=== PATIENT | male | born 1995 | race Caucasian/White ===

== ENCOUNTER 2019-12-21 09:02 | Emergency (ER) | payer SELFPAY ==
[2019-12-21 09:20] VITALS: BP 140/81; PULSE 20; RESP 18; TEMP 36.6; O2SAT 98
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
[2019-12-21 09:28] VITALS: BP 130/85; PULSE 78; RESP 20; O2SAT 98
== END 2019-12-21 09:31 | disposition home or self-care (01) ==
PROVIDERS: Emergency Provider Family Medicine
DX: R21 Rash and other nonspecific skin eruption (principal); T50.995A Adverse effect of other drugs, medicaments and biological substances, initial encounter
CPT/HCPCS: 99281; 99282

== ENCOUNTER 2023-01-13 08:20 | Emergency (ER) | payer OTHER, SELFPAY ==
--- NOTE | ~2023-01-13 | XR_ITS ---
Left Hand Technique: PA, oblique, and lateral views were obtained. Clinical History: Third DIP flexion Findings: No acute fracture or dislocation is seen. There is fixed flexion at the third DIP joint. Ying int spaces are preserved. Soft tissues are unremarkable. Impression: Fixed flexion at the third DIP joint. This could reflect underlying extensor tendon rupture. Follow-u p MR could be considered to better evaluate the underlying tendons. Reviewed, dictated and finalized at location . Impression: Fixed flexion at the third DIP joint. This could reflect underlying extensor te ndon rupture. Follow-up MR could be considered to better evaluate the underlyin g tendons.
[2023-01-13 08:20] VITALS: BP 123/93; PULSE 96; RESP 16; TEMP 36.8; O2SAT 100
--- NOTE | 2023-01-13 08:46 | ED.UPPEXIN ---
HPI - Extremity Injury (Upper) General Chief Complaint: Extremity Injury, Upper Stated Complaint: finger deformity Time Seen by Provider: 01/13/23 08:46 Source: patient Mode of arrival: ambulatory History of Present Illness HPI narrative: 27-year-old male was trying to pull down his boxers this morning when he accidentally forcibly flexed his distal phalanx of the middle finger of the left hand. He developed pain in the distal interphalangeal joint and subsequently he was not able to extend it. The finger has fixed flexion deformity of the distal phalanx. complaint: injury to: left Onset (ago): hour(s) ( 3 hours ago) Other Extremity Injury: Left: hand Handedness: right Place: home Severity: mild Relieving factors: none Exacerbating factors: none Context: direct blow Associated symptoms: denies other symptoms Related Data Home Medications Medication Instructions Recorded Confirmed No Home Medications 12/21/19 01/13/23 Allergies Allergy/AdvReac Type Severity Reaction Status Date / Time amoxicillin [From Augmentin] Allergy Rash Verified 01/13/23 08:33 clavulanic acid Allergy Rash Verified 01/13/23 08:33 [From Augmentin] Review of Systems Review of Systems: All systems reviewed & are unremarkable except as noted in HPI and below Exam Const: General: healthy appearing and no acute distress Orientation/consciousness: patient oriented x3 Limitations: no limitations HENMT: Head: normal to inspection Ears: external ears normal Face/Nose/Sinus: Normal external nose present Face and sinus: normal facial exam Mouth: Yes Normal oral and palatal mucosa present Throat: posterior oropharynx normal Eyes: Conjunctivae: conjunctivae normal Pupils: Equal, round and reactive pupils present EOM: EOMs intact bilaterally Direct Ophthalmoscopy: no photophobia Neck: Neck: normal visual inspection, no lymphadenopathy and no meningeal signs Chest: Chest palpation & inspection: normal inspection of the chest Resp: Effort & Inspection: normal respiratory effort Auscultation: clear to auscultation bilaterally Cardio: Rate: regular rate Rhythm: regular rhythm GI: GI Palp: Yes Soft to palpation Auscultation: normal bowel sounds Other: no tenderness/ rigidity / rebound. : General: Yes no CVA tenderness Skin: General skin exam: normal color Rashes: no rashes Wounds: no wounds Neuro: General: patient oriented x3 Cranial nerves: Yes Nystagmus not present Speech: normal speech Extrem: General: normal to inspection Other: Left hand middle finger has forced flexion deformity of the distal phalanx. Unable to extend his distal phalanx. Distal neurovascular bundle is intact. Psych: Mental Status: mental status grossly normal Affect: normal affect Attitude: cooperative Course Course Emergency Course: Mallet finger- will get an x-ray of the hand to rule out fracture around the distal interphalangeal joint. No fracture noted around the D IP. This appears to be a rupture of the extensor tendon. Vital Signs Vital signs: Vital Signs Temperature 36.8 C 01/13/23 08:20 Pulse Rate 96 01/13/23 08:20 Respiratory Rate 16 01/13/23 08:20 Blood Pressure 123/93 H 01/13/23 08:20 Pulse Oximetry 100 01/13/23 08:20 Oxygen Delivery Room Air 01/13/23 08:20 Temperature 36.8 C 01/13/23 08:20 Pulse Rate 96 01/13/23 08:20 Respiratory Rate 16 01/13/23 08:20 Blood Pressure 123/93 H 01/13/23 08:20 Pulse Oximetry 100 01/13/23 08:20 Oxygen Delivery Room Air 01/13/23 08:20 Discharge Plan Discharge Clinical Impression: Mallet deformity of left middle finger Patient Disposition: Home, Self-Care Condition: Stable Instructions: Antibiotic Form, Jammed Finger (ED), Tendon Repair (DC) Patient Language: Lithuanian Prescriptions: No Action No Home Medications Follow-up/Referrals: UNKNOWN,DOCTOR [Primary Care Provider] - Time of Disposition: 09:
== END 2023-01-13 09:40 | disposition home or self-care (01) ==
PROVIDERS: Emergency Provider Internal Medicine Critical Care Medicine
DX: M20.012 Mallet finger of left finger(s) (principal)
CPT/HCPCS: 29130; 73130; 99283

== ENCOUNTER 2023-02-06 09:16 | Outpatient (CLI) | payer OTHER, SELFPAY ==
--- NOTE | ~2023-02-06 | XR_ITS ---
XR hand LT min 3V DATE: 02/06/2023 09:31 INDICATION: Third finger jammed, tendon ruptured TECHNIQUE: 3 views COMPARISON: 01/05/2023 left hand FINDINGS: There is reduction of the previous flexion deformity at the distal interphalangeal joint of the third digit. No fracture, dislocation, periosteal reaction or bone destruction. IMPRESSION: No significant abnormality Reviewed, dictated and finalized at location B. IMPRESSION: No significant abnormality
== END 2023-02-06 09:17 | disposition home or self-care (01) ==
LOC: CHSIMG 09:18
PROVIDERS: PCP Registered Nurse; Visit Provider Family Medicine
DX: S69.92XD Unspecified injury of left wrist, hand and finger(s), subsequent encounter (principal)
CPT/HCPCS: 73130

== ENCOUNTER 2023-04-26 13:37 | Emergency (ER) | payer SELFPAY ==
[2023-04-26 13:41] VITALS: BP 135/73; PULSE 97; RESP 18; TEMP 37.4; O2SAT 99
[2023-04-26] MEDS: FLUORESCEIN SOD 1 MG/STRIP EACH EYE (15:17)
[2023-04-26] MEDS: TETRACAINE HCL 0.5% OPHTH SOLN 4 ML BTL 1 DROP EACH EYE (15:17)
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
[2023-04-26] MEDS: DACRIOSE EYE IRRIGATION 118 ML BOTTLE 60 ML LEFT EYE (15:57)
[2023-04-26 16:01] VITALS: BP 138/74; PULSE 84; RESP 20; TEMP 36.8; O2SAT 99
[2023-04-26 16:15] VITALS: BP 125/82; PULSE 85; RESP 17; TEMP 36.9; O2SAT 99
== END 2023-04-26 16:22 | disposition home or self-care (01) ==
PROVIDERS: Emergency Provider Emergency Medicine; PCP Registered Nurse
DX: L03.213 Periorbital cellulitis (principal)
CPT/HCPCS: 99283; A9270

== ENCOUNTER 2023-06-05 15:51 | Emergency (ER) | payer SELFPAY ==
[2023-06-05 15:52] VITALS: BP 117/83; PULSE 87; RESP 20; TEMP 37.7; O2SAT 100
--- NOTE | 2023-06-05 15:57 | ED.URI ---
HPI - URI/Sore Throat General Chief Complaint: Upper Respiratory Infection Stated Complaint: sore throat Time Seen by Provider: 06/05/23 15:52 Source: patient and RN notes reviewed Mode of arrival: ambulatory Limitations: no limitations History of Present Illness MD elicited complaint: sore throat Onset (ago): day(s) (2) Consistency: progressively worsening Severity: moderate Able to tolerate fluids by mouth: Yes Exacerbating factors: swallowing Relieving factors: nothing Context: sick contacts Associated symptoms: denies other symptoms Treatments prior to arrival: none Related Data Allergies Allergy/AdvReac Type Severity Reaction Status Date / Time amoxicillin [From Augmentin] Allergy Rash Verified 04/26/23 13:40 clavulanic acid Allergy Rash Verified 04/26/23 13:40 [From Augmentin] Review of Systems Review of Systems: All systems reviewed & are unremarkable except as noted in HPI and below PMFSH Past Medical History Medical History (Updated 06/05/23 @ 17:06 by Pedro Mabry MD) No active medical problems Surgical History Surgical History (Updated 06/05/23 @ 17:06 by Pedro Mabry MD) No pertinent past surgical history Social History Social History (Updated 06/05/23 @ 17:06 by Pedro Mabry MD) Smoking status: Current some day smoker Tobacco type: e-cigarettes/vaping Exam Const: General: healthy appearing, no acute distress and alert Nutritional Appearance: well nourished Orientation/consciousness: patient oriented x3 Limitations: no limitations HENMT: Head: normal to inspection Ears: external ears normal Face/Nose/Sinus: Normal external nose present Face and sinus: normal facial exam Mouth: Yes moist mucous membranes Throat: uvula midline and abnormal tonsil bilateral erythema, exudates and hypertrophy Eyes: Conjunctivae: conjunctivae normal Pupils: Equal, round and reactive pupils present EOM: EOMs intact bilaterally Neck: Neck: normal visual inspection and lymphadenopathy bilateral anterior cervical soft and tender Resp: Effort & Inspection: normal respiratory effort Auscultation: clear to auscultation bilaterally Cardio: Rate: regular rate Rhythm: regular rhythm GI: GI Palp: Yes Soft to palpation and No Tenderness to palpation present (GI) Auscultation: normal bowel sounds Back/Spine/Pelvis: Cervical Spine: cervical ROM normal Thoracic/Lumbar Spine: thoraco-lumbar ROM normal Skin: General skin exam: normal color Rashes: no rashes Neuro: General: patient oriented x3, moves all extremities, no focal motor deficits and CN's II-XI intact bilaterally Speech: normal speech Gait exam (Neuro): Normal gait present Extrem: General: normal to inspection and no clubbing, cyanosis or edema Psych: Mental Status: mental status grossly normal Affect: normal affect Attitude: cooperative Course Vital Signs Vital signs: Vital Signs Temperature 37.7 C H 06/05/23 15:52 Pulse Rate 87 06/05/23 15:52 Respiratory Rate 20 06/05/23 15:52 Blood Pressure 117/83 06/05/23 15:52 Pulse Oximetry 100 06/05/23 15:52 Oxygen Delivery Room Air 06/05/23 15:52 Temperature 37.7 C H 06/05/23 15:52 Pulse Rate 87 06/05/23 15:52 Respiratory Rate 20 06/05/23 15:52 Blood Pressure 117/83 06/05/23 15:52 Pulse Oximetry 100 06/05/23 15:52 Oxygen Delivery Room Air 06/05/23 15:52 MDM - URI/Sore Throat Differential Diagnosis Differential diagnosis: Likely upper respiratory infection, viral infection and pharyngitis Lab Data Attestation: I reviewed the patient's lab results. Labs: Lab Results 06/05/23 Range/Units 15:52 Group A Strep (PCR) Not detected (Negative) Discharge Plan Discharge Clinical Impression: Pharyngitis Qualifiers: Pharyngitis/tonsillitis etiology: unspecified etiology Qualified Code(s): J02.9 - Acute pharyngitis, unspecified Patient Disposition: Home, Self-Care Condition: Stable Instructions: Pharyngi
[2023-06-05 16:45] LABS: Strep Group A RT-PCR NOT DETECTED (Negative)
[2023-06-05 16:52] VITALS: BP 110/75; PULSE 78; RESP 20; TEMP 36.8; O2SAT 98
== END 2023-06-05 16:50 | disposition home or self-care (01) ==
PROVIDERS: Emergency Provider Emergency Medicine; PCP Registered Nurse
DX: J02.9 Acute pharyngitis, unspecified (principal)
CPT/HCPCS: 87651; 99283

== ENCOUNTER 2024-03-18 06:49 | Emergency (ER) | payer SELFPAY ==
--- NOTE | ~2024-03-18 | XR_ITS ---
Clinical Indication: Cough PA and lateral views of the chest: Comparison: 01/26/2019 Findings: The lungs are clear, without evidence of focal consolidation or pleural effusion. Cardiome diastinal silhouette is within normal limits. Bones and soft tissues are unremarkable. Impression: Normal chest. Reviewed, dictated and finalized at [facility]. Impression: Normal chest.
[2024-03-18 06:50] VITALS: O2SAT 98
[2024-03-18 06:52] VITALS: BP 115/75; PULSE 94; RESP 18; TEMP 36.8; O2SAT 100
[2024-03-18 06:53] VITALS: BP 115/75; PULSE 94; RESP 18; TEMP 36.8; O2SAT 100
--- NOTE | 2024-03-18 07:13 | ED.URI ---
HPI - URI/Sore Throat General Chief Complaint: Upper Respiratory Infection Stated Complaint: back pain Time Seen by Provider: 03/18/24 07:03 Source: patient Mode of arrival: ambulatory Limitations: no limitations History of Present Illness HPI Narrative: Patient is a 28-year-old male with right middle to lower back pain from either coughing and/or work related lifting. He has been not feeling well for about 1 week. He has had cough and congestion. No chest pain or shortness of breath. MD elicited complaint: cough Onset (ago): week(s) (1) Consistency: intermittent Severity: moderate Pain scale (0-10): 5 Description of mucous: clear Able to tolerate fluids by mouth: Yes Exacerbating factors: deep breaths Relieving factors: rest Context: other ( Patient lifts concrete for work) Associated symptoms: cough Treatments prior to arrival: none Related Data Allergies Allergy/AdvReac Type Severity Reaction Status Date / Time amoxicillin [From Augmentin] Allergy Rash Verified 03/18/24 06:52 clavulanic acid Allergy Rash Verified 03/18/24 06:52 [From Augmentin] Review of Systems Review of Systems: All systems reviewed & are unremarkable except as noted in HPI and below Constitutional: Constitutional: Reports no additional constitutional complaints Eyes: Eyes: Reports no additional eye complaints ENT: Reports system reviewed and no additional complaints, except as documented Cardiovascular: Cardiovascular: Reports no additional cardiovascular complaints Respiratory: Respiratory: Reports no additional respiratory complaints Gastrointestinal: Gastrointestinal: Reports no additional gastrointestinal complaints Genitourinary: Genitourinary: Reports no additional male genitourinary complaints Musculoskeletal: Musculoskeletal: Reports no additional musculoskeletal complaints Integumentary/Breasts: Skin/Breast: Reports system reviewed and no additional complaints, except as docu Neurologic: Reports system reviewed and no additional complaints, except as documented Psychiatric: Psychiatric: Reports no additional psychiatric complaints Endocrine: Endocrine: Reports no additional endocrine complaints Hematologic/Lymphatic: Hematologic/Lymphatic: Reports no additional hematologic/lymphatic complaints Allergic/Immunologic: Allergic/Immunologic: Reports no additional allergic/immunologic complaints PMFSH Past Medical History Medical History No active medical problems Surgical History Surgical History No pertinent past surgical history Social History Social History Smoking status: Current some day smoker Tobacco type: e-cigarettes/vaping Exam Const: General: healthy appearing Nutritional Appearance: well nourished Orientation/consciousness: patient oriented x3 HENMT: Head: normal to inspection Ears: external ears normal Face/Nose/Sinus: Normal external nose present Eyes: Conjunctivae: conjunctivae normal Pupils: Equal, round and reactive pupils present EOM: EOMs intact bilaterally Neck: Neck: normal visual inspection Chest: Chest palpation & inspection: normal inspection of the chest Resp: Effort & Inspection: normal respiratory effort and not labored Auscultation: not clear to auscultation bilaterally, crackles on the right in the lower lung garner, no rales, no rhonchi, no wheezes, breath sounds present and diminished lung sounds Cardio: Rate: regular rate and not bradycardic Rhythm: regular rhythm Heart sounds: no murmurs GI: Inspection: non-distended GI Palp: Yes Soft to palpation, No Tenderness to palpation present (GI) and No Guarding due to palpation present (GI) Auscultation: normal bowel sounds : General: Yes bladder normal to palpation Back/Spine/Pelvis: Back: no CVA tenderness Skin: General skin exam: normal color
[2024-03-18] MEDS: KETOROLAC (*BKC) 60 MG/2 ML VIAL IM (07:25)
[2024-03-18 08:23] VITALS: BP 104/78; PULSE 74; RESP 16; TEMP 36.9; O2SAT 100
== END 2024-03-18 08:23 | disposition home or self-care (01) ==
PROVIDERS: Emergency Provider Emergency Medicine
DX: S39.012A Strain of muscle, fascia and tendon of lower back, initial encounter (principal); J40 Bronchitis, not specified as acute or chronic; X58.XXXA Exposure to other specified factors, initial encounter; F17.290 Nicotine dependence, other tobacco product, uncomplicated; Z79.51 Long term (current) use of inhaled steroids
CPT/HCPCS: 71046; 96372; 99283; J1885